=== PATIENT | female | born 1950 | race Caucasian/White ===

== ENCOUNTER 2020-11-06 05:06 | Observation (INO) ==
[2020-11-06] MEDS ORDERED: Aspirin 81 MG TAB.CHEW PO ONE (05:19)
[2020-11-06 05:32] LABS: Basophils # 0.1 K/mcL (0.0-0.2); Basophils % 1.2 %; Eosinophils # 0.2 K/mcL (0.0-0.6); Eosinophils % 3.2 %; Hematocrit 35.6 % (35.3-44.9); Hemoglobin 11.9 g/dL (11.5-15.4); Immature Granulocytes % 0.4 % (0-4); Lymphocytes # 2.2 K/mcL (0.6-4.6); Lymphocytes % 39.4 %; Mean Corpuscular HGB Conc 33.4 g/dL (31.6-35.5); Mean Corpuscular Hemoglobin 30.1 pg (28.0-33.3); Mean Corpuscular Volume 89.9 fL (83.0-100.0); Mean Platelet Volume 10.5 fL (9.4-12.4); Monocytes # 0.4 K/mcL (0.0-1.3); Monocytes % 6.7 %; Neutrophils # 2.8 K/mcL (1.6-8.9); Platelet Count 195 K/mcL (140-400); Red Blood Count 3.96 M/mcL (3.82-4.97); Red Cell Distribution Width 13.1 % (11.5-14.5); Segmented Neutrophils % 49.1 %; White Blood Count 5.7 K/mcL (4.3-11.1)
[2020-11-06 05:43] LABS: INR 0.9; Prothrombin Time 10.8 Seconds (9.4-12.1)
[2020-11-06 05:54] LABS: BUN/Creatinine Ratio 16 (6-26); Blood Urea Nitrogen 29 mg/dL (8-23); Calcium 10.3 mg/dL (8.6-10.3); Carbon Dioxide 28 mEq/L (23-29); Chloride 107 mEq/L (98-107); Glucose 108 mg/dL (70-105); Osmolality,Calculated 300 (280-300); Potassium 3.5 mEq/L (3.5-5.1); Sodium 142 mEq/L (136-145); eGFR For African Americans 34 (> 60); eGFR For Non-African Americans 28 (> 60)
[2020-11-06 05:55] LABS: Troponin I < 0.03 ng/mL (< 0.04)
[2020-11-06] MEDS ORDERED: Naloxone 0.4 MG/ML INJ IVP PRN (07:35)
[2020-11-06] MEDS ORDERED: Ondansetron 4 MG/2 ML VIAL IVP PRN (08:07)
[2020-11-06] MEDS ORDERED: NIFEdipine XL (24 HR) 30 MG TAB.ER.24 PO SCH (09:00)
[2020-11-06] MEDS ORDERED: Magnesium Oxide 400 MG TABLET PO SCH (09:00)
[2020-11-06 10:47] LABS: C-Reactive Protein < 5 mg/L (Less than 10)
[2020-11-06] MEDS: *HR* Heparin 5,000 UNIT/ML VIAL SQ SCH ×2 (14:35→21:06)
[2020-11-06] MEDS ORDERED: Acetaminophen 325 MG TABLET PO PRN (19:39)
[2020-11-06] MEDS ORDERED: NIFEdipine XL (24 HR) 30 MG TAB.ER.24 PO ONE (21:00)
[2020-11-06] MEDS: Magnesium Oxide 400 MG TABLET PO SCH (22:53)
[2020-11-07 04:02] LABS: Basophils # 0.1 K/mcL (0.0-0.2); Basophils % 0.9 %; Eosinophils # 0.2 K/mcL (0.0-0.6); Eosinophils % 3.4 %; Hematocrit 32.3 % (35.3-44.9); Hemoglobin 10.9 g/dL (11.5-15.4); Immature Granulocytes % 0.2 % (0-4); Lymphocytes # 2.1 K/mcL (0.6-4.6); Lymphocytes % 40.2 %; Mean Corpuscular HGB Conc 33.7 g/dL (31.6-35.5); Mean Corpuscular Hemoglobin 31.2 pg (28.0-33.3); Mean Corpuscular Volume 92.6 fL (83.0-100.0); Monocytes # 0.4 K/mcL (0.0-1.3); Monocytes % 7.3 %; Neutrophils # 2.6 K/mcL (1.6-8.9); Platelet Count 200 K/mcL (140-400); Red Blood Count 3.49 M/mcL (3.82-4.97); Red Cell Distribution Width 13.2 % (11.5-14.5); White Blood Count 5.3 K/mcL (4.3-11.1)
[2020-11-07 04:21] LABS: Calcium 9.5 mg/dL (8.6-10.3); Potassium 3.5 mEq/L (3.5-5.1)
[2020-11-07 04:31] LABS: Bacteria,Urine Few per hpf (None-Few); Bilirubin,Urine Negative (Negative); Blood,Urine Negative (Negative); Clarity,Urine Clear (Clear); Color,Urine Colorless (Yellow); Glucose,Urine (UA) Normal (Normal); Hyaline Casts,Urine Few per lpf (None Seen); Ketones,Urine Negative (Negative); Leukocyte Esterase,Urine Negative (Negative); Mucus,Urine Few per lpf (None-Few); Nitrite,Urine Negative (Negative); Protein,Urine 50 mg/dL (Neg-Trace); RBC,Urine 0-3 per hpf (0-3); Specific Gravity,Urine 1.014 (1.010-1.025); Squamous Epithelial Cell,Urine Few per hpf (None-Few); Urobilinogen,Urine Normal (Normal); WBC,Urine 0-3 per hpf (0-3)
[2020-11-07] MEDS: *HR* Heparin 5,000 UNIT/ML VIAL SQ SCH (05:20)
[2020-11-07 07:04] VITALS: BP 151/70
[2020-11-07] MEDS: Magnesium Oxide 400 MG TABLET PO SCH (08:43)
[2020-11-07] MEDS ORDERED: NIFEdipine XL (24 HR) 60 MG TAB.ER.24 PO SCH ×2 (09:00)
[2020-11-07] MEDS ORDERED: Vitamin B Complex/Vit C/Vit E 1 EACH TABLET PO SCH (09:00)
[2020-11-07] MEDS ORDERED: NON-FORMULARY MEDICATION 1 EACH EACH (Losartan Potassium [Cozaar] 100 MG Tablet) PO SCH (09:00)
[2020-11-07] MEDS ORDERED: NON-FORMULARY MEDICATION 1 EACH EACH (Atorvastatin Calcium [Lipitor] 20 MG Tablet) PO SCH (09:00)
[2020-11-10] MEDS ORDERED: ALORA TP SCH (09:00)
== END 2020-11-07 10:55 | disposition home or self-care (01) ==
LOC: EMEROOARM 05:06 → 2ANU 05:06
PROVIDERS: ADMIT Internal Medicine; ATTEND Internal Medicine